=== PATIENT | female | born 1970 | race Caucasian/White ===

== ENCOUNTER 2022-04-24 21:15 | Emergency (ER) | payer MEDICARE, OTHER ==
[2022-04-25] MEDS ORDERED: SODIUM CHLORIDE 0.9% 1,000 ML IV STA ×2 (01:13)
[2022-04-25] MEDS ORDERED: ACETAMINOPHEN TAB 500 MG TAB PO STA (01:16)
--- NOTE | 2022-04-25 01:20 | ED ---
Fever HPI <Erick Rollins - Last Filed: 04/25/22 02:34> - General Source: patient, family, RN notes reviewed Mode of arrival: ambulatory Limitations: no limitations <Olman Logan - Last Filed: 04/25/22 03:59> - General Chief Complaint: Fever Stated Complaint: Fever Time Seen by Provider: 04/25/22 00:48 - History of Present Illness Initial Comments: This is a pleasant 51-year-old female who is here in the area [place]. She spiked to 104 fever earlier today. Patient took acetaminophen. Patient then states she got lightheaded and thought she was dehydrated. Patient states her b lood pressure dropped into the 90 systolic. Patient presented to the [facility] for evaluation. Patient was tested for COVID-19 in triage which was negative. Patient took antipyretics at about 7 PM. 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 Patient underwent a laminectomy at [facility] in [facility] in 2019 secondary to the infection. Patient was on long-term antibiotic antibiotics. Patient was left with some neurological problems after this surgery. Patient has weakness in both legs and has a neurogenic bladder. Patient does have to use a straight catheter to urinate. Patient states that since the surgery she's only had one urinary tract infection. She denies any significant increase in neck pain or back pain. She denies any cough. No sore throat. No earache. Patient denies any hematuria. No abdominal pain. No headache, no changes in vision or hearing, no sore throat or difficulty with speech, no neck pain, no chest pain or shortness of breath, no abdominal pain, no nausea or vomiting, no changes in urination or bowel movements, no numbness or tingling, no extremity pain, no skin rashes or lesions. Past medical, surgical, social, and family history reviewed. (Olman Logan) - Related Data Previous Rx's Medication Instructions Recorded Cefdinir [Omnicef] 300 mg PO BID #14 capsule 04/25/22 Allergies Allergy/AdvReac Type Severity Reaction Status Date / Time No Known Allergies Allergy Verified 04/24/22 22:11 Review of Systems ROS Other: All systems not noted in ROS Statement are negative. <Erick Rollins - Last Filed: 04/25/22 02:34> ROS Other: All systems not noted in ROS Statement are negative. <Olman Logan Last Filed: 04/25/22 03:59> ROS Statement: Those systems with pertinent positive or pertinent negative responses have been documented in the HPI. Past Medical History Additional Past Medical History / Comment(s): hypotension, back problems, neurogenic bladder, chronic nerve issues secondary to cervical spine infection and subsequent laminectomy History of Any Multi-Drug Resistant Organisms: None Reported Past Surgical History: Back Surgery, Tonsillectomy Additional Past Surgical History / Comment(s): Cervical laminectomy secondary to cervical spine osteomyelitis 2019, [facility] in [place] Past Psychological History: Depression Smoking Status: Current every day smoker Past Alcohol Use History: Occasional Past Drug Use History: Marijuana <Olman Logan Filed: 04/25/22 03:59> General Exam Limitations: no limitations General appearance: alert, in no apparent distress Head exam: Present: atraumatic, normocephalic, normal inspection Eye exam: Present: normal appearance, PERRL, EOMI. Absent: scleral icterus, conjunctival injection, periorbital swelling ENT exam: Present: normal exam, normal oropharynx, mucous membranes moist, TM's normal bilaterally, normal external ear exam. Absent: mucous membranes dry Neck exam: Present: normal inspection, full ROM. Absent: tenderness, meningismus, lymphadenopathy Respiratory exam: Present: normal lung sounds bilaterally. Absent: respiratory distress, wheezes, rales, rhonchi, stridor Cardiovascular Exam: Present: regular rate, normal rhythm, normal heart sounds. Absent: systolic murmur, diastolic murmur, rubs, gallop, clicks GI/Abdominal exam: Present: soft, normal bowel sounds. Absent: distended, tenderness, guarding, rebound, rigid Extremities exam: Present: normal inspection, full ROM, normal capillary refill. Absent: tenderness, pedal edema, joint swelling, calf tenderness Back exam: Present: normal inspection, full ROM Neurological exam: Present: alert, oriented X3, CN II-XII intact Psychiatric exam: Present: normal affect, normal mood Skin exam: Present: warm, dry, intact, normal color. Absent: rash, cyanosis, diaphoretic, erythema, urticaria, vesicles, petechiae, pallor, mottled, abrasion <Olman Logan - Last Filed: 04/25/22 03:59> - General Exam Comments Initial Comments: Patient noted to be afebrile. Mildly tachycardic. Capillary refills less than 2 seconds. Appears to be adequately hydrated. No respiratory distress. Patient is able to ambulate. Patient usually uses a walker but was able to transfer to the bed on her own power. No mottling. Cranial nerves II through XII are intact. Alert and oriented 4, moist mucous membranes (Olman Logan) Course <Olman Logan - Last Filed: 04/25/22 03:59> Vital Signs 04/24/22 04/25/22 22:04 01:36 Temperature 100.1 F H 100.0 F H Pulse Rate 111 H 95 Respiratory 24 18 Rate Blood Pressure 130/86 O2 Sat by Pulse 96 98 Oximetry - Reevaluation(s) Reevaluation #1: 04/25/22 03:26 Medical record is reviewed Symptoms are improved here in the emergency department Patient is informed of results and questions answered Patient in no distress Currently awaiting computed tomography scan results (Olman Logan) Medical Decision Making - Lab Data Result diagrams: 04/25/22 01:42 04/25/22 01:42 - EKG Data -: EKG Interpreted by Me (EKG is sinus rhythm 84 IN 173 QRS 92 QTC 393) <Erick Rollins - Last Filed: 04/25/22 02:34> - Lab Data Result diagrams: 04/25/22 01:42 04/25/22 01:42 - EKG Data -: EKG Interpreted by Me - Radiology Data Radiology results: report reviewed, image reviewed <Olman Logan - Last Filed: 04/25/22 03:59> - Medical Decision Making The case was discussed in detail with ED attending physician. Presentation, findings, treatment plan discussed in detail.Patient presents with fever, no other significant symptomology other than stating that she felt like she was dehydrated and her systolic blood pressure dropped down in the 90s [place] the [place]. Patient's history is Located as she previously has had an infection in her cervical spine which required a laminectomy. Patient's initial diagnostics here essentially negative. Patient does have an elevated CRP. Discussed the case with ED supervising physician. Imaging ordered in the form of IV contrast mediated CT of the cervical spine and thoracic spine. Patient's imaging shows no evidence of acute process in the cervical thoracic spine. Rest of the patient's workup was essentially normal aside from the urine and CRP. I'm going to cover the patient with antibiotics until the urine culture can be obtained. Did discuss our findings with the patient who wants to be discharged and states she feels well enough to go home. Of course I told her to return immediately if any symptoms worsen. She should follow-up with her regular physician as soon as possible. Patient was told to return to the ER for any signs or symptoms worsen. Told to return immediately if any other problems arise. All questions answered. Treatment plan discussed. Patient in agreement Every effort has been made to ensure accuracy of this dictation. However, due to the limitations of electronic medical records and dictation devices, errors in charting still occur. Supervising physicians Dr. Rollins ([facility]) - Lab Data Lab Results 04/24/22 04/25/22 04/25/22 Range/Units 22:14 01:42 01:42 WBC 11.8 H (3.8-10.6) k/uL RBC 4.27 (3.80-5.40) m/uL Hgb 13.8 (11.4-16.0) gm/dL Hct 41.0 (34.0-46.0) % MCV 95.9 (80.0-100.0) fL MCH 32.4 (25.0-35.0) pg MCHC 33.8 (31.0-37.0) g/dL RDW 13.1 (11.5-15.5) % Plt Count 230 (150-450) k/uL MPV 8.0 Neutrophils % 81 % Lymphocytes % 12 % Monocytes % 6 % Eosinophils % 1 % Basophils % 0 % Neutrophils # 9.6 H (1.3-7.7) k/uL Lymphocytes # 1.4 (1.0-4.8) k/uL Monocytes # 0.7 (0-1.0) k/uL Eosinophils # 0.1 (0-0.7) k/uL Basophils # 0.0 (0-0.2) k/uL ESR 25 H (0-20) mm/hr PT 10.2 (9.0-12.0) sec INR 0.9 (<1.2) Sodium (137-145) mmol/L Potassium (3.5-5.1) mmol/L Chloride (98-107) mmol/L Carbon Dioxide (22-30) mmol/L Anion Gap mmol/L BUN (7-17) mg/dL Creatinine (0.52-1.04) mg/dL Est GFR (CKD-EPI)AfAm (>60 ml/min/1.73 sqM) Est GFR (CKD-EPI)NonAf (>60 ml/min/1.73 sqM) Glucose (74-99) mg/dL Plasma Lactic Acid [place] (0.7-2.0) mmol/L Calcium (8.4-10.2) mg/dL Total Bilirubin (0.2-1.3) mg/dL AST (14-36) U/L ALT (4-34) U/L Alkaline Phosphatase (38-126) U/L Troponin I (0.000-0.034) ng/mL C-Reactive Protein (<1.0) mg/dL Total Protein (6.3-8.2) g/dL Albumin (3.5-5.0) g/dL Lipase (23-300) U/L Urine Color Urine Appearance (Clear) Urine pH (5.0-8.0) Ur Specific [place] (1.001-1.035) Urine Protein (Negative) Urine Glucose (UA) (Negative) Urine Ketones (Negative) Urine Blood (Negative) Urine Nitrite (Negative) Urine Bilirubin (Negative) Urine Urobilinogen (<2.0) mg/dL Ur Leukocyte Esterase (Negative) Urine RBC (0-5) /hpf Urine WBC (0-5) /hpf Ur Squamous Epith Cells (0-4) /hpf Urine Bacteria (None) /hpf Urine Mucus (None) /hpf Urine HCG, Qual (Not Detectd) Coronavirus (PCR) Not Detected (Not Detectd) Influenza Type A RNA (Not Detectd) Influenza Type B (PCR) (Not Detectd) 04/25/22 04/25/22 04/25/22 Range/Units 01:42 01:42 01:42 WBC (3.8-10.6) k/uL RBC (3.80-5.40) m/uL Hgb (11.4-16.0) gm/dL Hct (34.0-46.0) % MCV (80.0-100.0) fL MCH (25.0-35.0) pg MCHC (31.0-37.0) g/dL RDW (11.5-15.5) % Plt Count (150-450) k/uL MPV Neutrophils % % Lymphocytes % % Monocytes % % Eosinophils % % Basophils % % Neutrophils # (1.3-7.7) k/uL Lymphocytes # (1.0-4.8) k/uL Monocytes # (0-1.0) k/uL Eosinophils # (0-0.7) k/uL Basophils # (0-0.2) k/uL ESR (0-20) mm/hr PT (9.0-12.0) sec INR (<1.2) Sodium 139 (137-145) mmol/L Potassium 4.1 (3.5-5.1) mmol/L Chloride 102 (98-107) mmol/L Carbon Dioxide 24 (22-30) mmol/L Anion Gap 13 mmol/L BUN 13 (7-17) mg/dL Creatinine 0.71 (0.52-1.04) mg/dL Est GFR (CKD-EPI)AfAm >90 (>60 ml/min/1.73 sqM) Est GFR (CKD-EPI)NonAf >90 (>60 ml/min/1.73 sqM) Glucose 114 H (74-99) mg/dL Plasma Lactic Acid [place] 1.1 (0.7-2.0) mmol/L Calcium 9.8 (8.4-10.2) mg/dL Total Bilirubin 0.6 (0.2-1.3) mg/dL AST 22 (14-36) U/L ALT 23 (4-34) U/L Alkaline Phosphatase 68 (38-126) U/L Troponin I <0.012 (0.000-0.034) ng/mL C-Reactive Protein 5.7 H (<1.0) mg/dL Total Protein 6.8 (6.3-8.2) g/dL Albumin 4.3 (3.5-5.0) g/dL Lipase 61 (23-300) U/L Urine Color Urine Appearance (Clear) Urine pH (5.0-8.0) Ur Specific [place] (1.001-1.035) Urine Protein (Negative) Urine Glucose (UA) (Negative) Urine Ketones (Negative) Urine Blood (Negative) Urine Nitrite (Negative) Urine Bilirubin (Negative) Urine Urobilinogen (<2.0) mg/dL Ur Leukocyte Esterase (Negative) Urine RBC (0-5) /hpf Urine WBC (0-5) /hpf Ur Squamous Epith Cells (0-4) /hpf Urine Bacteria (None) /hpf Urine Mucus (None) /hpf Urine HCG, Qual (Not Detectd) Coronavirus (PCR) (Not Detectd) Influenza Type A RNA (Not Detectd) Influenza Type B (PCR) (Not Detectd) 04/25/22 04/25/22 04/25/22 Range/Units 01:42 01:44 01:44 WBC (3.8-10.6) k/uL RBC (3.80-5.40) m/uL Hgb (11.4-16.0) gm/dL Hct (34.0-46.0) % MCV (80.0-100.0) fL MCH (25.0-35.0) pg MCHC (31.0-37.0) g/dL RDW (11.5-15.5) % Plt Count (150-450) k/uL MPV Neutrophils % % Lymphocytes % % Monocytes % % Eosinophils % % Basophils % % Neutrophils # (1.3-7.7) k/uL Lymphocytes # (1.0-4.8) k/uL Monocytes # (0-1.0) k/uL Eosinophils # (0-0.7) k/uL Basophils # (0-0.2) k/uL ESR (0-20) mm/hr PT (9.0-12.0) sec INR (<1.2) Sodium (137-145) mmol/L Potassium (3.5-5.1) mmol/L Chloride (98-107) mmol/L Carbon Dioxide (22-30) mmol/L Anion Gap mmol/L BUN (7-17) mg/dL Creatinine (0.52-1.04) mg/dL Est GFR (CKD-EPI)AfAm (>60 ml/min/1.73 sqM) Est GFR (CKD-EPI)NonAf (>60 ml/min/1.73 sqM) Glucose (74-99) mg/dL Plasma Lactic Acid [place] (0.7-2.0) mmol/L Calcium (8.4-10.2) mg/dL Total Bilirubin (0.2-1.3) mg/dL AST (14-36) U/L ALT (4-34) U/L Alkaline Phosphatase (38-126) U/L Troponin I (0.000-0.034) ng/mL C-Reactive Protein (<1.0) mg/dL Total Protein (6.3-8.2) g/dL Albumin (3.5-5.0) g/dL Lipase (23-300) U/L Urine Color Light Yellow Urine Appearance Clear (Clear) Urine pH 6.0 (5.0-8.0) Ur Specific [place] 1.009 (1.001-1.035) Urine Protein Negative (Negative) Urine Glucose (UA) Negative (Negative) Urine Ketones Negative (Negative) Urine Blood Negative (Negative) Urine Nitrite Negative (Negative) Urine Bilirubin Negative (Negative) Urine Urobilinogen <2.0 (<2.0) mg/dL Ur Leukocyte Esterase Moderate H (Negative) Urine RBC 1 (0-5) /hpf Urine WBC 6 H (0-5) /hpf Ur Squamous Epith Cells <1 (0-4) /hpf Urine Bacteria Rare H (None) /hpf Urine Mucus Rare H (None) /hpf Urine HCG, Qual Not Detected (Not Detectd) Coronavirus (PCR) (Not Detectd) Influenza Type A RNA Not Detected (Not Detectd) Influenza Type B (PCR) Not Detected (Not Detectd) - EKG Data EKG Comments: EKG read at 2 AM reveals sinus rhythm with a rate of 84. Normal intervals. Left axis deviation. RSR pattern in V1 and V2, possible incomplete right bundle-branch block. Poor R-wave progression. No evidence of acute ST or T- wave changes. (Olman Logan) Disposition <Erick Rollins - Last Filed: 04/25/22 02:34> Is patient prescribed a controlled substance at d/c from ED?: No Time of Disposition: 03:53 <Olman Logan - Last Filed: 04/25/22 03:59> Clinical Impression: Fever, Urinary tract infection Narrative: Possible viral syndrome (Olman Logan) Disposition: HOME SELF-CARE Instructions (If sedation given, give patient instructions): Fever in Adults (ED), Urinary Tract Infection in Women (ED) Additional Instructions: Take antibiotics as directed. Alternate acetaminophen and ibuprofen every 3-4 hours for fever control. Follow-up with your regular physician as soon as possible. Tylenol your doctor that a urine culture was collected here. Follow-up with your regular physician as directed. Return to the ER immediately if any symptoms worsen, new symptoms arise, or any other problems develop. Referrals: Diana Walker NPC [Family Provider] - 1-2 days
[2022-04-25 02:17] LABS: INR 0.9 (<1.2); Prothrombin Time 10.2 sec (9.0-12.0)
[2022-04-25 02:21] LABS: ALT 23 U/L (4-34); AST 22 U/L (14-36); African American GFR (CKD) >90 (>60 ml/min/1.73 sqM); Albumin 4.3 g/dL (3.5-5.0); Alkaline Phosphatase 68 U/L (38-126); Anion Gap 13 mmol/L; Blood Urea Nitrogen 13 mg/dL (7-17); C Reactive Protein 5.7 mg/dL (<1.0); Calcium 9.8 mg/dL (8.4-10.2); Carbon Dioxide 24 mmol/L (22-30); Chloride 102 mmol/L (98-107); Glucose 114 mg/dL (74-99); Lipase 61 U/L (23-300); Non-African American GFR(CKD) >90 (>60 ml/min/1.73 sqM); Potassium 4.1 mmol/L (3.5-5.1); Sodium 139 mmol/L (137-145); Total Bilirubin 0.6 mg/dL (0.2-1.3); Total Protein 6.8 g/dL (6.3-8.2)
[2022-04-25 02:28] LABS: Basophils % (A) 0 %; Eosinophils # (A) 0.1 k/uL (0-0.7); Eosinophils % (A) 1 %; HGB 13.8 gm/dL (11.4-16.0); Lymphocytes # (A) 1.4 k/uL (1.0-4.8); Lymphocytes % (A) 12 %; MCH 32.4 pg (25.0-35.0); MCHC 33.8 g/dL (31.0-37.0); MCV 95.9 fL (80.0-100.0); Monocytes # (A) 0.7 k/uL (0-1.0); Monocytes % (A) 6 %; Neutrophils # (A) 9.6 k/uL (1.3-7.7); Neutrophils % (A) 81 %; Platelet Count 230 k/uL (150-450); RBC 4.27 m/uL (3.80-5.40); RDW 13.1 % (11.5-15.5); WBC 11.8 k/uL (3.8-10.6)
[2022-04-25 02:28] LABS: Appearance,Urine Clear (Clear); Bacteria,Urine Rare /hpf; Bilirubin,Urine Negative (Negative); Blood,Urine Negative (Negative); Color,Urine Light Yellow; Glucose,Urine (UA) Negative (Negative); Ketones,Urine Negative (Negative); Leukocyte Esterase,Urine Moderate (Negative); Mucus,Urine Rare /hpf; Nitrite,Urine Negative (Negative); Protein,Urine Negative (Negative); RBC,Urine 1 /hpf (0-5); Specific Gravity,Urine 1.009 (1.001-1.035); Squamous Epithelial Cell,Urine <1 /hpf (0-4); Urobilinogen,Urine <2.0 mg/dL (<2.0); WBC,Urine 6 /hpf (0-5)
[2022-04-25] MEDS ORDERED: RX INFO: IV CONTRAST WAS GIVEN 1 EACH MISC MISCELLANE PRN (02:51)
[2022-04-25 03:20] LABS: Erythrocyte Sedimentation Rate 25 mm/hr (0-20)
--- NOTE | 2022-04-25 03:24 | XR ---
EXAMINATION TYPE: XR chest 2V DATE OF EXAM: 04/25/2022 COMPARISON: NONE HISTORY: Fever TECHNIQUE: 2 views FINDINGS: Heart and mediastinum are normal. Lungs are clear. Diaphragm is normal. Bony thorax is inta ct. IMPRESSION: Normal chest.
--- NOTE | 2022-04-25 03:39 | CT ---
EXAMINATION TYPE: CT CervThoracic spine w con DATE OF EXAM: 04/25/2022 COMPARISON: None HISTORY: CT DLP: mGycm Automated exposure control for dose reduction was used. CONTRAST: The contrast was Isovue 100 mL. Images obtained from the skull base to T2 T12 vertebra with IV contrast. There is cervical mild kyphotic deformity. There is multilevel laminectomy in the cervical spine from from C4 to C6. The thoracic vertebra have normal spacing and alignment. No compression fracture. Posterior elements are intact. There is no thoracic paraspinal mass. Skull base is intact. No evidence of any significan t spinal stenosis. No evidence of epidural mass. No pathologic enhancement. IMPRESSION: Multilevel cervical laminectomy defect with kyphotic deformity. No evidence of epidural mass. No sign of osteomyelitis. Negative CT scan of the thoracic spine.
[2022-04-25] MEDS ORDERED: CEFDINIR 300 MG CAP PO STA (03:47)
[2022-04-25 04:10] VITALS: BP 147/92; PULSE 79; RESP 16; TEMP 98.8
== END 2022-04-25 04:21 | disposition home or self-care (01) ==
LOC: EC 21:15
DX: N39.0 Urinary tract infection, site not specified (principal); R50.9 Fever, unspecified; F17.200 Nicotine dependence, unspecified, uncomplicated; Z20.822 Contact with and (suspected) exposure to COVID-19
CPT/HCPCS: 99284 ×2; 96360 ×2; 36415; 93005; 80053; 85652; 83605; 83690; 84484; 85025; 85610; 86140; 81001; 81025; 87040; 87086; 87077; 87186; 87502; 84145; 87635; 71046; 72129; 72126; Q9967